=== PATIENT | female | born 1975 | race Hispanic/Latino ===

== ENCOUNTER → 2020-06-05 | Outpatient (CLI) | payer OTHER ==
[2020-06-05 10:18] LABS: HEMOGLOBIN 13.8 g/dL (12.0-16.0)
[2020-06-05 10:28] LABS: INR 0.94; PROTHROMBIN TIME 13.1 seconds (11.9-14.5)
[2020-06-05 10:29] LABS: PARTIAL THROMBOPLASTIN TIME 29.7 seconds (23.8-35.5)
[2020-06-05 10:33] LABS: BLOOD UREA NITROGEN 14 mg/dL (7-26); BUN/CREATININE RATIO 15 (6-25); CREATININE, SERUM 0.92 mg/dL (0.57-1.11); EST GLOMERULAR FILTRATION RATE > 60 ML/MIN (60-)
== END ==
LOC: DX 09:49
PROVIDERS: ATTEND Internal Medicine Infectious Disease
DX: L03.114 Cellulitis of left upper limb (principal)
CPT/HCPCS: 36415; 82565; 84520; 85014; 85049; 85610; 85730